=== PATIENT | male | born 1930 | race Caucasian/White ===

== ENCOUNTER → 2017-04-15 | Outpatient (CLI) | payer OTHER ==
[~2017-04-15] MED LIST: CARVEDILOL12.5 MG PO; CLARITIN-D 24 H1 TA1 PO; GLUCOTROL5 MG PO; GLUMETZA500 PO; JANUVIA100 MG PO; MOBIC15 MG PO; NEURONTIN 400400 M1 PO; PRILOSEC40 MG PO; TAMSULOSIN HCL0.4 MG PO; VITAMIN B-1000 MCG/2 PO; VITCB500GO PO; VOLTAREN GEL 1100 G1 TOP; ZESTRIL5 MG PO; [UNRECOGNIZED DRUG - OTHER] PO
== END ==
LOC: MRI 02:34
DX: M47.896 Other spondylosis, lumbar region (principal); M48.06 Spinal stenosis, lumbar region